=== PATIENT | female | born 1990 | race Hispanic/Latino ===

== ENCOUNTER 2021-11-01 13:23 | Outpatient (CLI) | payer BC ==
[2021-11-02 14:07] LABS: SARS-CoV-2 PCR by NAA DETECTED (NotDetected)
== END 2021-11-01 13:24 | disposition home or self-care (01) ==
LOC: CSHLAB 13:23
PROVIDERS: ATTEND Family Medicine
DX: U07.1 COVID-19 (principal)
CPT/HCPCS: U0003; U0005

== ENCOUNTER 2021-11-04 06:00 | Inpatient (IN) | payer BC ==
[2021-11-04] MEDS ORDERED: Bupivacaine 0.25% HCL 30 ML VIAL ONE (07:00)
[2021-11-04 07:35] VITALS: BMI 31.6
[2021-11-04] MEDS ORDERED: Penicillin G 2.5 MILL.units 2.5 MILL.UNITS in Premix Bag 1 BAG IVPB SCH (07:35)
[2021-11-04] MEDS ORDERED: HYDROcodone/Acetaminophen 5/325 mg Tablet PO PRN ×2 (07:35→16:05)
[2021-11-04] MEDS ORDERED: NS w/ Oxytocin 30 units 500 ML IV SCH ×3 (07:35→16:05)
[2021-11-04] MEDS ORDERED: Ondansetron PF 4 MG/2 ML Vial IVP PRN ×3 (07:35→16:05)
[2021-11-04] MEDS ORDERED: Lidocaine 1% (PF) 30 ML VIAL SC PRN (07:35)
[2021-11-04] MEDS ORDERED: Promethazine HCl 25 MG/ML VIAL IM PRN ×2 (07:35→09:46)
[2021-11-04] MEDS ORDERED: Carboprost 250 MCG/ML AMP IM PRN (07:35)
[2021-11-04] MEDS ORDERED: hydrALAZINE 20 MG/ML VIAL SLOW IVP PRN ×2 (07:35→16:05)
[2021-11-04] MEDS ORDERED: Ibuprofen 800 MG TAB PO PRN (07:35)
[2021-11-04] MEDS ORDERED: Methylergonovine 0.2 MG/ML VIAL IM PRN (07:35)
[2021-11-04] MEDS ORDERED: Diphenoxylate HCl/Atropine Tablet PO PRN (07:35)
[2021-11-04] MEDS ORDERED: Butorphanol Tartrate 1 MG/ML VIAL SLOW IVP PRN (07:35)
[2021-11-04] MEDS ORDERED: Misoprostol 200 MCG TAB PR PRN (07:35)
[2021-11-04] MEDS ORDERED: Acetaminophen 500 MG TAB PO PRN (07:35)
[2021-11-04] MEDS: Lactated Ringer's 1,000 ML IV SCH (07:59)
[2021-11-04] MEDS ORDERED: Penicillin G Potassium 5 MILL.UNITS in Sodium Chloride 0.9% 100 ML IVPB SCH (08:00)
[2021-11-04] MEDS ORDERED: Penicillin G Potassium 5 MILL.UNITS VIAL ONE (08:12)
[2021-11-04] MEDS ORDERED: NS w/ Oxytocin 30 units 500 ML ONE (08:12)
[2021-11-04 08:15] LABS: Hemoglobin 12.3 g/dL (12.0-15.5); Mean Corpuscular HGB CONC 33.1 g/dL (32.0-36.0); Mean Corpuscular Hemoglobin 29.6 pg (27.0-33.0); Mean Corpuscular Volume 89.6 fl (81.6-98.3); Platelet Count 223 10x3/uL (150-450); RBC Distribution Width 12.1 % (11.5-14.5); Red Blood Cell (RBC) Count 4.15 10x6/uL (3.90-5.03); White Blood Cell (WBC) Count 8.9 10x3/uL (3.5-10.5)
[2021-11-04] MEDS ORDERED: Fentanyl 2 mcg/Bup 0.1% Cadd 100 ML ONE (08:32)
[2021-11-04 08:47] LABS: Hep B Surf Ag Non-Reactive S/CO (NonReactive); Syphilis Antibody Nonreactive (Nonreactive); Syphilis Antibody Index 0.06 S/CO (<1.00 Non-Reactive)
[2021-11-04 08:58] LABS: HBSAg Index 0.22 S/CO (0-0.99)
[2021-11-04] MEDS ORDERED: Lactated Ringer's 500 ML IV PRN (09:46)
[2021-11-04] MEDS ORDERED: diphenhydrAMINE 50 MG/ML VIAL IVP PRN (09:46)
[2021-11-04] MEDS ORDERED: Acetaminophen 325 MG TAB PO PRN (09:46)
[2021-11-04] MEDS ORDERED: ePHEDrine Sulfate 50 MG/10 ML VIAL SLOW IVP PRN (09:46)
[2021-11-04] MEDS ORDERED: Hydrocerin (Eucerin) Cream 120 gm Jar TOP PRN (09:46)
[2021-11-04] MEDS ORDERED: Naloxone HCl 0.4 mg/ml Vial IVP PRN ×2 (09:46)
[2021-11-04] MEDS ORDERED: Communication Order-Pharmacy FS SCH (10:00)
[2021-11-04] MEDS ORDERED: Fentanyl 2 mcg/Bupivacaine 0.1% Cassette 100 ML EPIDURAL SCH (10:00)
[2021-11-04] MEDS: Penicillin G 2.5 MILL.units 2.5 MILL.UNITS in Premix Bag 1 BAG IVPB SCH (11:49)
[2021-11-04] MEDS ORDERED: Penicillin G 2.5 MILL.units 50 ML ONE (11:50)
[2021-11-04] MEDS ORDERED: diphenhydrAMINE 25 MG CAP PO PRN (16:05)
[2021-11-04] MEDS ORDERED: Lanolin Ointment 7 GM TUBE TOP PRN (16:05)
[2021-11-04] MEDS ORDERED: Benzocaine-Menthol 82.5 ML CAN TOP PRN (16:05)
[2021-11-04] MEDS ORDERED: Boostrix 0.5 ML (Tdap) VIAL IM ONE (16:05)
[2021-11-04] MEDS ORDERED: Milk Of Magnesia 30 ML UDCUP PO PRN (16:05)
[2021-11-04] MEDS ORDERED: Bisacodyl 10 MG SUPP PR PRN (16:05)
[2021-11-04] MEDS: Ferrous Sulfate 325 MG TAB PO SCH (18:49)
[2021-11-04] MEDS ORDERED: Ibuprofen 800 MG TAB ONE (20:00)
[2021-11-04] MEDS: Ibuprofen 800 MG TAB PO SCH (20:01)
[2021-11-04] MEDS: HYDROcodone/Acetaminophen 5/325 mg Tablet PO PRN (20:01)
[2021-11-04] MEDS: Docusate 100 MG CAP PO SCH (20:01)
[2021-11-05] MEDS: Ibuprofen 800 MG TAB PO SCH ×2 (04:10→14:10)
[2021-11-05] MEDS: Ferrous Sulfate 325 MG TAB PO SCH ×2 (07:13→14:59)
[2021-11-05] MEDS: Lactated Ringer's 1,000 ML IV SCH (07:13)
[2021-11-05] MEDS: Penicillin G 2.5 MILL.units 2.5 MILL.UNITS in Premix Bag 1 BAG IVPB SCH (07:14)
[2021-11-05] MEDS: Docusate 100 MG CAP PO SCH (08:11)
[2021-11-05] MEDS ORDERED: Prenatal Vitamin 1 TAB PO SCH (09:00)
[2021-11-05 11:47] VITALS: BP 106/60; TEMP 98.8
[2021-11-05] MEDS: HYDROcodone/Acetaminophen 5/325 mg Tablet PO PRN (12:34)
== END 2021-11-05 17:20 | disposition home or self-care (01) | DRG 807 ==
LOC: CSHLD 06:39 → CSHANTE 18:20
PROVIDERS: ADMIT Family Medicine; ATTEND Family Medicine
PROC: 10D07Z6 Extraction of Products of Conception, Vacuum, Via Natural or Artificial Opening (ICD-10-PCS; principal; 2021-11-04)
PROC: 3E033VJ Introduction of Other Hormone into Peripheral Vein, Percutaneous Approach (ICD-10-PCS; 2021-11-04)
DX: O99.824 Streptococcus B carrier state complicating childbirth (principal); Z37.0 Single live birth; O76 Abnormality in fetal heart rate and rhythm complicating labor and delivery; Z20.822 Contact with and (suspected) exposure to COVID-19; Z3A.39 39 weeks gestation of pregnancy; O75.9 Complication of labor and delivery, unspecified
CPT/HCPCS: 51702; 85027; 86780; 86850; 86900; 86901; 87340; J2540; J2590; J3490; J7120; S0020; U0003; U0005